=== PATIENT | female | born 1955 | race Caucasian/White ===

== ENCOUNTER 2017-08-05 05:42 | Day surgery (SDC) | payer OTHER ==
[2017-08-05] MEDS ORDERED: PROPOFOL 60 ML (07:52)
== END 2017-08-05 10:43 | disposition home or self-care (01) ==
LOC: GIL 05:42
DX: K25.9 Gastric ulcer, unspecified as acute or chronic, without hemorrhage or perforation (principal); K29.30 Chronic superficial gastritis without bleeding; K63.5 Polyp of colon; K64.8 Other hemorrhoids; I10 Essential (primary) hypertension; E11.9 Type 2 diabetes mellitus without complications; J44.9 Chronic obstructive pulmonary disease, unspecified; E78.5 Hyperlipidemia, unspecified
CPT/HCPCS: 43239; 88305; 88312

== ENCOUNTER 2017-08-23 14:14 | Outpatient (CLI) | payer OTHER | END 2017-08-23 16:44 | disposition home or self-care (01) | LOC: DCC 14:14 | DX: R10.9 Unspecified abdominal pain (principal); M19.90 Unspecified osteoarthritis, unspecified site; E78.5 Hyperlipidemia, unspecified; M54.9 Dorsalgia, unspecified; G43.909 Migraine, unspecified, not intractable, without status migrainosus; Z86.73 Personal history of transient ischemic attack (TIA), and cerebral infarction without residual deficits | CPT/HCPCS: G0463 ==